=== PATIENT | female | born 1995 | race Caucasian/White ===

== ENCOUNTER 2016-11-15 07:52 | Emergency (ER) | payer OTHER ==
--- NOTE | 2016-11-15 10:43 | DIAGNOSTIC IMAGING REPORT ---
PROCEDURE: US SOFT TISSUE ANYWHERE INDICATION: Left labial pain and swelling. TECHNIQUE: Merida scale and color Doppler translabial sonographic images of the left labia were obtained. (Nohemy Islas, RN). COMPARISON: None. FINDINGS: There is a 3.3 x 1.7 cm proteinaceous fluid collection in the left labial subcutaneous tissues (1 cm deep to the skin surface). Findings are most compatible with an infected Bartholin gland. IMPRESSION: 1. There is a 3.3 x 1.7 cm of proteinaceous fluid collection the left labial region consistent with an infected Bartholin gland. 2. Findings discussed with Dr. Tigre Resendez.
--- NOTE | 2016-11-15 11:45 | ED NURSING NOTES ---
Clinical Report - Nurses [facility] [address] [place] [address] 11/15/2016 7:52 [id number] TRI[facility] Triage time 08:Nov 15 2016. Acuity: LEVEL 4. Chief Complaint: (Left side labia majora bump). 08:11 11/15/16. SEPSIS SCREEN: Sepsis Screen. Negative (no infection suspected/documented). CHANDNI COMA SCORE: [place] Coma Scale: 15- eyes open spontaneously (4); best verbal response- oriented x 4 (5); best motor response- obeys commands (6). --08:11 Ilda Penn R.N. 08:02 11/15/16. BP: 104/60 (regular adult cuff) taken on the left arm, while lying. HR: 97. RR: 18 (regular). O2 saturation: 96% on room air. Temp: 98.6 F (oral). Pain level now: 04/08. --08:11 Ilda Penn R.N. Weight: 52.6 kg stated. Height/Length: 65 inches Per Patient. BMI: 19.3. --08:05 Ilda Penn R.N. Medications None. --08:06 Ilda Penn R.N. Allergies No Known Drug Allergy. --08:06 Ilda Penn R.N. History Arrived by private vehicle. Historian: patient. Accompanied by family. Primary physician (ABDULLAHI SIDDIQUI). Onset. (several days). ( Patient has tried heat and ice). 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 PAST MEDICAL HX: Last normal menstrual period- 1 weeks ago. No contraception. SOCIAL HX: Current every day light tobacco smoker- less than 1/2 a pack per day. History of heavy drug use: marijuana, ecstasy. (1 month ago for ecstasy and smokes marijuana daily). No alcohol use. No infectious disease exposure. ABUSE ASSESSMENT: No report of abuse. --08:11 Ilda Penn R.N. PROBLEMS: Gastritis. Breast Mass. Lymphadenitis. Back Pain. Abdominal Pain. Pyelonephritis. LNMP - Last Normal Menstrual Period. --08:06 Ilda Penn R.N. The following entry was modified by Ilda Penn R.N., 08:08 <<STRICKEN ENTRY-- Vomiting. --15:38 Ilda Penn R.N. --END STRIKE>> The following entry was modified by Ilda Penn R.N., 08:08 <<STRICKEN ENTRY-- Sick Contact. --21:56 Ilda Penn R.N. --END STRIKE>> The following entry was modified by Ilda Penn R.N., 08:08 <<STRICKEN ENTRY-- No history. --15:50 Ilda Penn R.N. --END STRIKE>>. ADDITIONAL SURGERIES: Tonsillectomy. --08:06 Ilda Penn R.N. Interventions ID band on patient. To treatment room. --08:11 Ilda Penn R.N. PHYSICAL ASSESSMENT 08:12 11/15/16. Ambulatory to room. Patient gowned. GENERAL / NEURO / PSYCH: Oriented X 4. HEENT: Mucous membranes are pink. RESPIRATORY: Respirations not labored. CVS: Normal heart rate and rhythm. Capillary refill less than 2 seconds. GI / : Abdomen soft and nontender. Bowel sounds within normal limits. Tender genital lesions present on the left labia majora. No vaginal bleeding. SKIN: Skin is warm. --08:12 Ilda Penn R.N. NURSING PROGRESS NOTES 08:12 11/15/16. Patient gowned. Head of bed elevated. Reassurance given. Two patient identifiers checked. Call light placed in reach. Side rails up x 1. Bed placed in lowest position. Brakes of bed on. Patient ready for evaluation- chart flagged and ED physician notified. --08:12 Ilda Penn R.N. 10:24 11/15/2016 Percocet (Oxycodone-Acetaminophen) PO 5/325 mg Tablets 1 tab given. Allergies verified, confirmed 5 rights and sedative warning given to the patient. --10:24 Ilda Penn R.N. 10:29 11/15/2016 Ativan (LORazepam) IM 1 mg given. Given in the left deltoid. Allergies verified, confirmed 5 rights and sedative warning given to the patient. --10:29 Idla Penn R.N. 11:46 11/15/2016 Keflex (Cephalexin) PO Capsules 500 mg given. Allergies verified and confirmed 5 rights. --11:46 Ilda Penn R.N. 11:46 11/15/2016 Bactrim DS (Sulfamethoxazole-TMP DS) PO Tablets 1 tab given. Allergies verified and confirmed 5 rights. --11:47 Ilda Penn R.N. DISPOSITION / DISCHARGE 12:19 11/15/16. Condition at departure: improved. No learning barriers present. Discharge instructions provided and reviewed with the patient. Reviewed medication(s) side effects, precautions and dosing information. Prescription(s) given to the patient. Reviewed wound care instructions. Patient verbalized understanding. Written instructions provided in Austrian. The patient was discharged by the physician. She was discharged home and accompanied by parent. She left the Emergency Department ambulatory and via private vehicle. Parent driving. ( Patient has no further questions). --12:20 Ilda Penn R.N. 12:14 11/15/16. BP: 118/69 (regular adult cuff) taken on the left arm, while sitting. HR: 88. RR: 18. O2 saturation: 99% on room air. Temp: 98.5 F (oral). Pain level now: 5/10. --12:20 Ilda Penn R.N. Departure time: 12:Nov 15 2016. --12:20 Ilda Penn R.N. Locked/Released at 11/15/2016 12:34 by Ilda Penn R.N.
--- NOTE | 2016-11-15 11:45 | ED NURSING NOTES ---
Clinical Report - Nurses [facility] [address] [place] [address] 11/15/2016 7:52 [id number] Triage time 08:Nov 15 2016. Acuity: LEVEL 4. Chief Complaint: (Left side labia majora bump). 08:11 11/15/16. SEPSIS SCREEN: Sepsis Screen. Negative (no infection suspected/documented). CHANDNI COMA SCORE: [place] Coma Scale: 15- eyes open spontaneously (4); best verbal response- oriented x 4 (5); best motor response- obeys commands (6). --08:11 Ilda Penn R.N. 08:02 11/15/16. BP: 104/60 (regular adult cuff) taken on the left arm, while lying. HR: 97. RR: 18 (regular). O2 saturation: 96% on room air. Temp: 98.6 F (oral). Pain level now: 04/08. --08:11 Ilda Penn R.N. Weight: 52.6 kg stated. Height/Length: 65 inches Per Patient. BMI: 19.3. --08:05 Ilda Penn R.N. Medications None. --08:06 Ilda Penn R.N. Allergies No Known Drug Allergy. --08:06 lIda Penn R.N. History Arrived by private vehicle. Historian: patient. Accompanied by family. Primary physician (ABDULLAHI SIDDIQUI). Onset. (several days). ( Patient has tried heat and ice). 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 PAST MEDICAL HX: Last normal menstrual period- 1 weeks ago. No contraception. SOCIAL HX: Current every day light tobacco smoker- less than 1/2 a pack per day. History of heavy drug use: marijuana, ecstasy. (1 month ago for ecstasy and smokes marijuana daily). No alcohol use. No infectious disease exposure. ABUSE ASSESSMENT: No report of abuse. --08:11 Ilda Penn R.N. PROBLEMS: Gastritis. Breast Mass. Lymphadenitis. Back Pain. Abdominal Pain. Pyelonephritis. LNMP - Last Normal Menstrual Period. --08:06 Ilda Penn R.N. The following entry was modified by Ilda Penn R.N., 08:08 <<STRICKEN ENTRY-- Vomiting. --15:38 Ilda Penn R.N. --END STRIKE>> The following entry was modified by Ilda Penn R.N., 08:08 <<STRICKEN ENTRY-- Sick Contact. --21:56 Ilda Penn R.N. --END STRIKE>> The following entry was modified by Ilda Penn R.N., 08:08 <<STRICKEN ENTRY-- No history. --15:50 Ilda Penn R.N. --END STRIKE>>. ADDITIONAL SURGERIES: Tonsillectomy. --08:06 Ilda Penn R.N. Interventions ID band on patient. To treatment room. --08:11 Ilda Penn R.N. PHYSICAL ASSESSMENT 08:12 11/15/16. Ambulatory to room. Patient gowned. GENERAL / NEURO / PSYCH: Oriented X 4. HEENT: Mucous membranes are pink. RESPIRATORY: Respirations not labored. CVS: Normal heart rate and rhythm. Capillary refill less than 2 seconds. GI / : Abdomen soft and nontender. Bowel sounds within normal limits. Tender genital lesions present on the left labia majora. No vaginal bleeding. SKIN: Skin is warm. --08:12 Ilda Penn R.N. NURSING PROGRESS NOTES 08:12 11/15/16. Patient gowned. Head of bed elevated. Reassurance given. Two patient identifiers checked. Call light placed in reach. Side rails up x 1. Bed placed in lowest position. Brakes of bed on. Patient ready for evaluation- chart flagged and ED physician notified. --08:12 Ilda Penn R.N. 10:24 11/15/2016 Percocet (Oxycodone-Acetaminophen) PO 5/325 mg Tablets 1 tab given. Allergies verified, confirmed 5 rights and sedative warning given to the patient. --10:24 Ilda Penn R.N. 10:29 11/15/2016 Ativan (LORazepam) IM 1 mg given. Given in the left deltoid. Allergies verified, confirmed 5 rights and sedative warning given to the patient. --10:29 Ilda Penn R.N. 11:46 11/15/2016 Keflex (Cephalexin) PO Capsules 500 mg given. Allergies verified and confirmed 5 rights. --11:46 Ilda Penn R.N. 11:46 11/15/2016 Bactrim DS (Sulfamethoxazole-TMP DS) PO Tablets 1 tab given. Allergies verified and confirmed 5 rights. --11:47 Ilda Penn R.N. DISPOSITION / DISCHARGE 12:19 11/15/16. Condition at departure: improved. No learning barriers present. Discharge instructions provided and reviewed with the patient. Reviewed medication(s) side effects, precautions and dosing information. Prescription(s) given to the patient. Reviewed wound care instructions. Patient verbalized understanding. Written instructions provided in Tongan. The patient was discharged by the physician. She was discharged home and accompanied by parent. She left the Emergency Department ambulatory and via private vehicle. Parent driving. ( Patient has no further questions). --12:20 Ilda Penn R.N. 12:14 11/15/16. BP: 118/69 (regular adult cuff) taken on the left arm, while sitting. HR: 88. RR: 18. O2 saturation: 99% on room air. Temp: 98.5 F (oral). Pain level now: 5/10. --12:20 Ilda Penn R.N. Departure time: 12:Nov 15 2016. --12:20 Ilda Penn R.N. Locked/Released at 11/15/2016 12:34 by Ilda Penn R.N.
--- NOTE | 2016-11-15 11:45 | ED ORDER SUMMARY ---
..... Patient: PROSPER FORREST OrderSheet Located [facility] VisitID: [id number] [place] [address] 21y, F Registration Date/Time: 11/15/2016 ORDER SHEET Weight: 52.6 kg (stated) Allergies: No Known Drug Allergy GENERAL ORDERS: US Soft Tissue Anywhere (bump) Urgent (08:26 11/15/2016 Berhane [place]) (Ack 8:29 Edgar) (9:05 Edgar) UA-Culture if indicated Urgent (08:26 11/15/2016 Berhane [place]) (8:27 Rell R.N.) I&D Tray (09:51 11/15/2016 Fuad Hurtado) (10:04 Rell R.N.) MEDICATION ORDERS: Lidocaine-Epinephrine Injection 1% (place at bedside, with syringes & needles) (09:50 11/15/2016 Fuad Hurtado) (Ack 10:04 Rell R.N.) Ativan IM 1 mg (HIGH ALERT MEDICATION, NOW) (10:16 11/15/2016 Fuad Hurtado) (10:29 Rell R.N.) Percocet PO 5/325 mg (HIGH ALERT MEDICATION, NOW) (10:17 11/15/2016 Fuad Hurtado) (10:24 Rell R.N.) Keflex PO 500 mg (NOW) (11:42 11/15/2016 Fuad Hurtado) (11:46 Rell R.N.) Bactrim DS PO (Tablet 800-160 mg) 1 tab (NOW) (11:42 11/15/2016 Fuad Hurtado) (11:47 Rell R.N.) IV FLUIDS: ORDER SHEET NOTES: [Electronically signed by Ilda Penn R.N. (12:34 11/15/2016)] [Electronically signed by Feng Isaacs Dr. (08:48 11/21/2016)] [Electronically locked/signed by Ilda Penn R.N. (12:34 11/15/2016)]
--- NOTE | 2016-11-15 11:45 | ED ORDER SUMMARY ---
..... Patient: PROSPER FORREST OrderSheet [facility] VisitID: [id number] [place] [address] 21y, F Registration Date/Time: 11/15/2016 ORDER SHEET Weight: 52.6 kg (stated) Allergies: No Known Drug Allergy GENERAL ORDERS: US Soft Tissue Anywhere (bump) Urgent (08:26 11/15/2016 Berhane [place]) (Ack 8:29 Edgar) (9:05 Edgar) UA-Culture if indicated Urgent (08:26 11/15/2016 [place]ane [place]) (8:27 Rell R.N.) I&D Tray (09:51 11/15/2016 Fuad Hurtado) (10:04 Rell R.N.) MEDICATION ORDERS: Lidocaine-Epinephrine Injection 1% (place at bedside, with syringes & needles) (09:50 11/15/2016 Fuad Hurtado) (Ack 10:04 Rell R.N.) Ativan IM 1 mg (HIGH ALERT MEDICATION, NOW) (10:16 11/15/2016 Fuad Hurtado) (10:29 Rell R.N.) Percocet PO 5/325 mg (HIGH ALERT MEDICATION, NOW) (10:17 11/15/2016 Fuad Hurtado) (10:24 Rell R.N.) Keflex PO 500 mg (NOW) (11:42 11/15/2016 Fuad Hurtado) (11:46 Rell R.N.) Bactrim DS PO (Tablet 800-160 mg) 1 tab (NOW) (11:42 11/15/2016 Fuad Hurtado) (11:47 Rell R.N.) IV FLUIDS: ORDER SHEET NOTES: [Electronically signed by Ilda Penn R.N. (12:34 11/15/2016)] [Electronically signed by Feng Isaacs Dr. (08:48 11/21/2016)] [Electronically locked/signed by Ilda Penn R.N. (12:34 11/15/2016)]
--- NOTE | 2016-11-15 11:45 | ED CLINICAL REPORT ---
Clinical Report - Physicians/Mid Levels [facility] [address] [place] [address] 11/15/2016 7:52 Patient: PROSPER FORREST Time Seen: 08:13 Nov 15 2016. Arrived- By private vehicle. Historian- patient. HISTORY OF PRESENT ILLNESS Chief Complaint: VAGINAL PAIN. This started past several days and still present and worsening. It was abrupt in onset and has been constant but is not gone now. Modifying factors- worsened by movement. Relieved by rest. The patient has had vaginal pain. No abdominal pain, pelvic pain, irregular periods, abnormal bleeding or vaginal discharge. No genital lesions, pain with urination or urinary frequency. (swelling to the left labia). Similar symptoms previously: None. Recent medical care: Not recently seen/assessed. REVIEW OF SYSTEMS No nausea, fever or skin rash. All systems otherwise negative, except as recorded above. PAST HISTORY See nurses notes. SOCIAL HISTORY Never smoker. Smoker- current status unknown. History of drug use: marijuana, ecstasy. No alcohol use. No recent travel. Is a local resident. ADDITIONAL NOTES The nursing notes have been reviewed. PHYSICAL EXAM Vital Signs: 11/15/2016 08:02 BP: 104/60. HR: 97. RR: 18. O2 saturation: 96%. Temp: 98.6 F. Pain level now: 8/10. Blood pressure normal. Oxygen saturation normal. Appearance: Alert. Oriented X3. No acute distress. CVS: Heart sounds normal. Respiratory: No respiratory distress. Breath sounds normal. Chest nontender. Abdomen: Soft and nontender. Bowel sounds normal. : (abscess to the left labia consistent with bartholin's. Deep and moderate sized. No area of fluctuance. no overlying skin changes. no crepitus. no gangrene. exam peformed with GLENN Gonsales casino assistant manager at all times.). Skin: Skin warm and dry. Normal skin color. No rash. Normal skin turgor. Extremities: Extremities nontender. No lower extremity edema. LABS, X-RAYS, AND EKG Note - Special Studies: Fluid collection to the left labia consistent with Bartholin's abscess. study performed by product support technician. Reviewed and interpreted by radiology. Findings discussed over the phone. Films were also reviewed by me. Agree with findings. PROGRESS AND PROCEDURES Incision & Drainage of Abscess: The risks of the procedure, benefits and alternatives were explained. Anesthesia provided using 1% lidocaine with epi. Skin cleansed with Betadine. Ultrasound utilized to confirm presence and determine location of abscess. A moderate amount of pus was drained. Cavity was irrigated with saline. Word catheter was placed. A dressing was applied. Estimated blood loss: 3 mL. ( Informed verbal consent obtained. patient tolerated procedure well. No competitions.). Course of Care: The patient is a pleasant 21-year-old female presenting for evaluation of left-sided labial pain. On examination, patient has signs and symptoms that are consistent with Bartholin's abscess. Ultrasound performed by cardiopulmonary technician prior to the arrival on my shift concerns patient to have abscess there. Bedside incision and drainage will be performed after informed verbal consent obtained. Patient is agreeable to treatment and plan. Discussed with patient 3 options with management of the abscess. Recommendeddrainage with antibiotics however also offered antibiotics alone or no treatment. After discussing the risks and benefits of each of these, patient agreed to abscess incision and drainage with antibiotics. Had long discussion patient in regards to Word catheter and the length of time needed for the Word catheter to be in place and also the high likelihood of recurrence of these abscesses in the future. abscess was successfully drained at bedside in the emergency department. Abscess was somewhat deep and ultrasound was required to identify and properly locates the abscess. Patient tolerated the procedure well. No competitions. Word catheter was placed. Antibiotic as provided here in the emergency department. I discussion with patient in regards to her workup here in the emergency department including diagnosis, home care, follow-up, and return precautions. All questions have been answered. The patient expressed understanding of these instructions and was agreeable to them. Patient is nontoxic and continues to be in no acute distress. Patient is a good outpatient candidate. Symptoms significantly improved after procedure and medications provided. CLINICAL IMPRESSION 11/15/2016 08:02 BP: 104/60. HR: 97. RR: 18. O2 saturation: 96%. Temp: 98.6 F. Pain level now: 8/10. Blood pressure normal. Oxygen saturation normal. Bartholin's abscess with incision and drainage (acute left). INSTRUCTIONS (Drain needs to stay in for 4 weeks. Follow up with your doctor in a few days to recheck the wound.). Warnings: GENERAL WARNINGS: Return or contact your physician immediately if your condition worsens or changes unexpectedly, if not improving as expected, or if other problems arise. Specifically return if pain, vomiting, bleeding, breathing difficulty or fever. Your Current Medications: CONTINUE TAKING THE FOLLOWING MEDICATIONS: None*. Prescription Medications: Keflex 500 mg: take 1 capsule orally every 8 hours for 10 days. No refill. Substitution is permissible. (disp 30 caps) Bactrim DS 800 mg / 160 mg: take 1 tablet orally every 12 hours for 10 days. No refill. Substitution is permissible. (disp 20 tabs) Percocet 5 mg/325 mg: take 1 tablet orally every 6 hours as needed for pain. Dispense twenty (20). No refill. Substitution is permissible. Follow-up: Return to the emergency department as needed. Follow up with your doctor in three days. Reason for referral: recheck today's concerns. Summary of care provided to patient via paper. Screening today revealed the patient's blood pressure to be in the normal range. The patient should follow up with a primary care provider for blood pressure management. Understanding of the discharge instructions verbalized by patient. Follow-up with: Jacoby Mcdonnell MD, Obstetrics/Gynecology, , [facility], [address] [place] [address] Follow up in three days. Reason for referral: recheck today's concerns if you are unable to see your doctor. Summary of care provided to patient via paper. (Electronically signed by Feng Isaacs Dr. 11/21/2016 8:48)
--- NOTE | 2016-11-15 11:45 | ED CLINICAL REPORT ---
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 Arrived- By private vehicle. Historian- patient. HISTORY OF PRESENT ILLNESS Chief Complaint: VAGINAL PAIN. This started past several days and still present and worsening. It was abrupt in onset and has been constant but is not gone now. Modifying factors- worsened by movement. Relieved by rest. The patient has had vaginal pain. No abdominal pain, pelvic pain, irregular periods, abnormal bleeding or vaginal discharge. No genital lesions, pain with urination or urinary frequency. (swelling to the left labia). Similar symptoms previously: None. Recent medical care: Not recently seen/assessed. REVIEW OF SYSTEMS No nausea, fever or skin rash. All systems otherwise negative, except as recorded above. PAST HISTORY See nurses notes. SOCIAL HISTORY Never smoker. Smoker- current status unknown. History of drug use: marijuana, ecstasy. No alcohol use. No recent travel. Is a local resident. ADDITIONAL NOTES The nursing notes have been reviewed. PHYSICAL EXAM Vital Signs: 11/15/2016 08:02 BP: 104/60. HR: 97. RR: 18. O2 saturation: 96%. Temp: 98.6 F. Pain level now: 8/10. Blood pressure normal. Oxygen saturation normal. Appearance: Alert. Oriented X3. No acute distress. CVS: Heart sounds normal. Respiratory: No respiratory distress. Breath sounds normal. Chest nontender. Abdomen: Soft and nontender. Bowel sounds normal. : (abscess to the left labia consistent with bartholin's. Deep and moderate sized. No area of fluctuance. no overlying skin changes. no crepitus. no gangrene. exam peformed with GLENN Gonsales facility administrator at all times.). Skin: Skin warm and dry. Normal skin color. No rash. Normal skin turgor. Extremities: Extremities nontender. No lower extremity edema. LABS, X-RAYS, AND EKG Note - Special Studies: Fluid collection to the left labia consistent with Bartholin's abscess. study performed by auto transmission technician. Reviewed and interpreted by radiology. Findings discussed over the phone. Films were also reviewed by me. Agree with findings. PROGRESS AND PROCEDURES Incision & Drainage of Abscess: The risks of the procedure, benefits and alternatives were explained. Anesthesia provided using 1% lidocaine with epi. Skin cleansed with Betadine. Ultrasound utilized to confirm presence and determine location of abscess. A moderate amount of pus was drained. Cavity was irrigated with saline. Word catheter was placed. A dressing was applied. Estimated blood loss: 3 mL. ( Informed verbal consent obtained. patient tolerated procedure well. No competitions.). Course of Care: The patient is a pleasant 21-year-old female presenting for evaluation of left-sided labial pain. On examination, patient has signs and symptoms that are consistent with Bartholin's abscess. Ultrasound performed by materials engineering technician prior to the arrival on my shift concerns patient to have abscess there. Bedside incision and drainage will be performed after informed verbal consent obtained. Patient is agreeable to treatment and plan. Discussed with patient 3 options with management of the abscess. Recommendeddrainage with antibiotics however also offered antibiotics alone or no treatment. After discussing the risks and benefits of each of these, patient agreed to abscess incision and drainage with antibiotics. Had long discussion patient in regards to Word catheter and the length of time needed for the Word catheter to be in place and also the high likelihood of recurrence of these abscesses in the future. abscess was successfully drained at bedside in the emergency department. Abscess was somewhat deep and ultrasound was required to identify and properly locates the abscess. Patient tolerated the procedure well. No competitions. Word catheter was placed. Antibiotic as provided here in the emergency department. I discussion with patient in regards to her workup here in the emergency department including diagnosis, home care, follow-up, and return precautions. All questions have been answered. The patient expressed understanding of these instructions and was agreeable to them. Patient is nontoxic and continues to be in no acute distress. Patient is a good outpatient candidate. Symptoms significantly improved after procedure and medications provided. CLINICAL IMPRESSION 11/15/2016 08:02 BP: 104/60. HR: 97. RR: 18. O2 saturation: 96%. Temp: 98.6 F. Pain level now: 8/10. Blood pressure normal. Oxygen saturation normal. Bartholin's abscess with incision and drainage (acute left). INSTRUCTIONS (Drain needs to stay in for 4 weeks. Follow up with your doctor in a few days to recheck the wound.). Warnings: GENERAL WARNINGS: Return or contact your physician immediately if your condition worsens or changes unexpectedly, if not improving as expected, or if other problems arise. Specifically return if pain, vomiting, bleeding, breathing difficulty or fever. Your Current Medications: CONTINUE TAKING THE FOLLOWING MEDICATIONS: None*. Prescription Medications: Keflex 500 mg: take 1 capsule orally every 8 hours for 10 days. No refill. Substitution is permissible. (disp 30 caps) Bactrim DS 800 mg / 160 mg: take 1 tablet orally every 12 hours for 10 days. No refill. Substitution is permissible. (disp 20 tabs) Percocet 5 mg/325 mg: take 1 tablet orally every 6 hours as needed for pain. Dispense twenty (20). No refill. Substitution is permissible. Follow-up: Return to the emergency department as needed. Follow up with your doctor in three days. Reason for referral: recheck today's concerns. Summary of care provided to patient via paper. Screening today revealed the patient's blood pressure to be in the normal range. The patient should follow up with a primary care provider for blood pressure management. Understanding of the discharge instructions verbalized by patient. Follow-up with: Jacoby Mcdonnell MD, Obstetrics/Gynecology, , [facility], [address] [place] [address] Follow up in three days. Reason for referral: recheck today's concerns if you are unable to see your doctor. Summary of care provided to patient via paper. (Electronically signed by Feng Isaacs Dr. 11/21/2016 8:48)
--- NOTE | 2016-11-21 08:48 | ED DISCHARGE INSTRUCTIONS ---
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 HR: 97. RR: 18. O2 saturation: 96%. Temp: 98.6 F. Pain level now: 8/10. Blood pressure normal. Oxygen saturation normal. Bartholin's abscess with incision and drainage (acute left). INSTRUCTIONS (Drain needs to stay in for 4 weeks. Follow up with your doctor in a few days to recheck the wound.). Warnings: GENERAL WARNINGS: Return or contact your physician immediately if your condition worsens or changes unexpectedly, if not improving as expected, or if other problems arise. Specifically return if pain, vomiting, bleeding, breathing difficulty or fever. Your Current Medications: CONTINUE TAKING THE FOLLOWING MEDICATIONS: None*. Prescription Medications: Keflex 500 mg: take 1 capsule orally every 8 hours for 10 days. No refill. Substitution is permissible. (disp 30 caps) Bactrim DS 800 mg / 160 mg: take 1 tablet orally every 12 hours for 10 days. No refill. Substitution is permissible. (disp 20 tabs) Percocet 5 mg/325 mg: take 1 tablet orally every 6 hours as needed for pain. Dispense twenty (20). No refill. Substitution is permissible. Follow-up: Return to the emergency department as needed. Follow up with your doctor in three days. Reason for referral: recheck today's concerns. Summary of care provided to patient via paper. Screening today revealed the patient's blood pressure to be in the normal range. The patient should follow up with a primary care provider for blood pressure management. Understanding of the discharge instructions verbalized by patient. Follow-up with: Jacoby Mcdonnell MD, Obstetrics/Gynecology, , [facility], [address] [place] [address] Follow up in three days. Reason for referral: recheck today's concerns if you are unable to see your doctor. Summary of care provided to patient via paper. ADDITIONAL INFORMATION Bartholin's Cyst [I&D] The Bartholin's glands are very small glands found inside the labia (vaginal lips). The glands produce fluid to help keep the vagina moist. When the opening of a Bartholins gland becomes blocked, the gland will swell and form a cyst. A cyst feels like a firm lump within the labia, from to 2 in size. It is usually not painful, unless it becomes infected. There are two common methods for draining the fluid and preventing return of the cyst: -- A small rubber tube (Word catheter) may have been inserted into the cyst. This will probably fall out on its own, or can be removed by your doctor in 2-3 weeks. -- A stitch may be used to hold the incision open and prevent it from healing closed too soon. Most infections of Bartholins cysts are due to bacteria that are normally present in the vagina. But, sometimes a sexually transmitted disease (STD) such as Gonorrhea can cause the infection. A culture test of the fluid can determine this. Home Care: 1) Sit in a tub filled with about 6 inches of very hot water. Allow the water to run in order to keep it hot for a total of 10-15 minutes. Repeat this three times a day until pain is relieved. 2) You may use acetaminophen (Tylenol) or ibuprofen (Motrin, Advil) to control pain, unless another medicine was prescribed. [ NOTE : If you have chronic liver or kidney disease or ever had a stomach ulcer or GI bleeding, talk with your doctor before using these medicines.] 3) Avoid sexual intercourse until all of the swelling and pain is gone, any tubes or stitches have been removed, and you have finished any antibiotics that were given. 4) If the cause of your infection is found to be due to an STD, it will be necessary for your sexual partner to be treated. He should contact his own doctor or clinic, or go to the local Public Health Department. Follow Up with your doctor or as advised by our staff. If a culture test was taken, you may call in two days for the result. If a rubber catheter was inserted and it falls out before your appointment to have it removed, call us or your doctor for advice. Get Prompt Medical Attention if any of the following occur: -- Increasing redness, pain or swelling of the labia -- Fever over 100.5' F (38.0' C) after two days of treatment -- Increasing pain in the lower abdomen -- New rash or joint pain Cephalexin Monohydrate Oral tablet What is this medicine? CEPHALEXIN (sef a NORBERT in) is a cephalosporin antibiotic. It is used to treat certain kinds of bacterial infections It will not work for colds, flu, or other viral infections. How should I use this medicine? Take this medicine by mouth with a full glass of water. Follow the directions on the prescription label. This medicine can be taken with or without food. Take your medicine at regular intervals. Do not take your medicine more often than directed. Take all of your medicine as directed even if you think you are better. Do not skip doses or stop your medicine early. Talk to your director of blood regarding the use of this medicine in children. While this drug may be prescribed for selected conditions, precautions do apply. What side effects may I notice from receiving this medicine? Side effects that you should report to your doctor or health memory care program resident as soon as possible: allergic reactions like skin rash, itching or hives, swelling of the face, lips, or tongue breathing problems pain or trouble passing urine redness, blistering, peeling or loosening of the skin, including inside the mouth severe or watery diarrhea unusually weak or tired yellowing of the eyes, skin Side effects that usually do not require medical attention (report to your doctor or health memory care program resident if they continue or are bothersome): gas or heartburn genital or anal irritation headache joint or muscle pain nausea, vomiting What may interact with this medicine? probenecid some other antibiotics What if I miss a dose? If you miss a dose, take it as soon as you can. If it is almost time for your next dose, take only that dose. Do not take double or extra doses. There should be at least 4 to 6 hours between doses. Where should I keep my medicine? Keep out of the reach of children. Store at room temperature between 59 and 86 degrees F (15 and 30 degrees C). Throw away any unused medicine after the expiration date. What should I tell my health care provider before I take this medicine? They need to know if you have any of these conditions: kidney disease stomach or intestine problems, especially colitis an unusual or allergic reaction to cephalexin, other cephalosporins, penicillins, other antibiotics, medicines, foods, dyes or preservatives or trying to get breast-feeding What should I watch for while using this medicine? Tell your doctor or health memory care program resident if your symptoms do not begin to improve in a few days. Do not treat diarrhea with over the counter products. Contact your doctor if you have diarrhea that lasts more than 2 days or if it is severe and watery. If you have diabetes, you may get a false-positive result for sugar in your urine. Check with your doctor or health memory care program resident. Sulfamethoxazole, Trimethoprim Oral tablet What is this medicine? SULFAMETHOXAZOLE; TRIMETHOPRIM or SMX-TMP (suhl fuh meth OK jovan zohl; trye METH oh prim) is a combination of a sulfonamide antibiotic and a second antibiotic, trimethoprim. It is used to treat or prevent certain kinds of bacterial infections. It will not work for colds, flu, or other viral infections. How should I use this medicine? Take this medicine by mouth with a full glass of water. Follow the directions on the prescription label. Take your medicine at regular intervals. Do not take it more often than directed. Do not skip doses or stop your medicine early. Talk to your director of blood regarding the use of this medicine in children. Special care may be needed. This medicine has been used in children as young as 2 months of age. What side effects may I notice from receiving this medicine? Side effects that you should report to your doctor or health memory care program resident as soon as possible: allergic reactions like skin rash or hives, swelling of the face, lips, or tongue breathing problems fever or chills, sore throat irregular heartbeat, chest pain joint or muscle pain pain or difficulty passing urine red pinpoint spots on skin redness, blistering, peeling or loosening of the skin, including inside the mouth unusual bleeding or bruising unusually weak or tired yellowing of the eyes or skin Side effects that usually do not require medical attention (report to your doctor or health memory care program resident if they continue or are bothersome): diarrhea dizziness headache loss of appetite nausea, vomiting nervousness What may interact with this medicine? Do not take this medicine with any of the following medications: aminobenzoate potassium dofetilide metronidazole This medicine may also interact with the following medications: TALIA inhibitors like benazepril, enalapril, lisinopril, and ramipril cyclosporine digoxin diuretics indomethacin medicines for diabetes methenamine methotrexate phenytoin potassium supplements pyrimethamine sulfinpyrazone tricyclic antidepressants warfarin What if I miss a dose? If you miss a dose, take it as soon as you can. If it is almost time for your next dose, take only that dose. Do not take double or extra doses. Where should I keep my medicine? Keep out of the reach of children. Store at room temperature between 20 to 25 degrees C (68 to 77 degrees F). Protect from light. Throw away any unused medicine after the expiration date. What should I tell my health care provider before I take this medicine? They need to know if you have any of these conditions: anemia asthma being treated with anticonvulsants if you frequently drink alcohol containing drinks kidney disease liver disease low level of folic acid or [id number] dehydrogenase poor nutrition or malabsorption porphyria severe allergies thyroid disorder an unusual or allergic reaction to sulfamethoxazole, trimethoprim, sulfa drugs, other medicines, foods, dyes, or preservatives or trying to get breast-feeding What should I watch for while using this medicine? Tell your doctor or health memory care program resident if your symptoms do not improve. Drink several glasses of water a day to reduce the risk of kidney problems. Do not treat diarrhea with over the counter products. Contact your doctor if you have diarrhea that lasts more than 2 days or if it is severe and watery. This medicine can make you more sensitive to the sun. Keep out of the sun. If you cannot avoid being in the sun, wear protective clothing and use a sunscreen. Do not use sun lamps or tanning beds/booths. Oxycodone Hydrochloride, Acetaminophen Oral tablet What is this medicine? ACETAMINOPHEN; OXYCODONE (a set a ARNULFO law fen; ox i KOE done) is a pain reliever. It is used to treat mild to moderate pain. How should I use this medicine? Take this medicine by mouth with a full glass of water. Follow the directions on the prescription label. Take your medicine at regular intervals. Do not take your medicine more often than directed. Talk to your director of blood regarding the use of this medicine in children. Special care may be needed. Patients over 65 years old may have a stronger reaction and need a smaller dose. What side effects may I notice from receiving this medicine? Side effects that you should report to your doctor or health memory care program resident as soon as possible: allergic reactions like skin rash, itching or hives, swelling of the face, lips, or tongue breathing difficulties, wheezing confusion light headedness or fainting spells severe stomach pain yellowing of the skin or the whites of the eyes Side effects that usually do not require medical attention (report to your doctor or health memory care program resident if they continue or are bothersome): dizziness drowsiness nausea vomiting What may interact with this medicine? alcohol antihistamines barbiturates like amobarbital, butalbital, butabarbital, methohexital, pentobarbital, phenobarbital, thiopental, and secobarbital benztropine drugs for bladder problems like solifenacin, trospium, oxybutynin, tolterodine, hyoscyamine, and methscopolamine drugs for breathing problems like ipratropium and tiotropium drugs for certain stomach or intestine problems like propantheline, homatropine methylbromide, glycopyrrolate, atropine, belladonna, and dicyclomine general anesthetics like etomidate, ketamine, nitrous oxide, propofol, desflurane, enflurane, halothane, isoflurane, and sevoflurane medicines for depression, anxiety, or psychotic disturbances medicines for sleep muscle relaxants naltrexone narcotic medicines (opiates) for pain phenothiazines like perphenazine, thioridazine, chlorpromazine, mesoridazine, fluphenazine, prochlorperazine, promazine, and trifluoperazine scopolamine tramadol trihexyphenidyl What if I miss a dose? If you miss a dose, take it as soon as you can. If it is almost time for your next dose, take only that dose. Do not take double or extra doses. Where should I keep my medicine? Keep out of the reach of children. This medicine can be abused. Keep your medicine in a safe place to protect it from theft. Do not share this medicine with anyone. Selling or giving away this medicine is dangerous and against the law. Store at room temperature between 20 and 25 degrees C (68 and 77 degrees F). Keep container tightly closed. Protect from light. This medicine may cause accidental overdose and if it is taken by other adults, children, or pets. Flush any unused medicine down the toilet to reduce the chance of harm. Do not use the medicine after the expiration date. What should I tell my health care provider before I take this medicine? They need to know if you have any of these conditions: brain tumor Crohn's disease, inflammatory bowel disease, or ulcerative colitis drink more than 3 alcohol containing drinks per day drug abuse or addiction head injury heart or circulation problems kidney disease or problems going to the bathroom liver disease lung disease, asthma, or breathing problems an unusual or allergic reaction to acetaminophen, oxycodone, other opioid analgesics, other medicines, foods, dyes, or preservatives or trying to get breast-feeding What should I watch for while using this medicine? Tell your doctor or health memory care program resident if your pain does not go away, if it gets worse, or if you have new or a different type of pain. You may develop tolerance to the medicine. Tolerance means that you will need a higher dose of the medication for pain relief. Tolerance is normal and is expected if you take this medicine for a long time. Do not suddenly stop taking your medicine because you may develop a severe reaction. Your body becomes used to the medicine. This does NOT mean you are addicted. Addiction is a behavior related to getting and using a drug for a non-medical reason. If you have pain, you have a medical reason to take pain medicine. Your doctor will tell you how much medicine to take. If your doctor wants you to stop the medicine, the dose will be slowly lowered over time to avoid any side effects. You may get drowsy or dizzy. Do not drive, use machinery, or do anything that needs mental alertness until you know how this medicine affects you. Do not stand or sit up quickly, especially if you are an older patient. This reduces the risk of dizzy or fainting spells. Alcohol may interfere with the effect of this medicine. Avoid alcoholic drinks. There are different types of narcotic medicines (opiates) for pain. If you take more than one type at the same time, you may have more side effects. Give your health care provider a list of all medicines you use. Your doctor will tell you how much medicine to take. Do not take more medicine than directed. Call emergency for help if you have problems breathing. The medicine will cause constipation. Try to have a bowel movement at least every 2 to 3 days. If you do not have a bowel movement for 3 days, call your doctor or health memory care program resident. Do not take Tylenol (acetaminophen) or medicines that have acetaminophen with this medicine. Too much acetaminophen can be very dangerous. Many nonprescription medicines contain acetaminophen. Always read the labels carefully to avoid taking more acetaminophen. You have been given the following additional information: Bartholin's Cyst (I And D) Cephalexin Monohydrate Oral tablet Sulfamethoxazole, Trimethoprim Oral tablet Oxycodone Hydrochloride, Acetaminophen Oral tablet (Electronically signed by Feng Isaacs Dr. 11/21/2016 8:48)
--- NOTE | 2016-11-21 08:48 | ED MAR SUMMARY ---
..... 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 Medication Administered: PERCOCET [PO] (OXYCODONE-ACETAMINOPHEN), Dose: 1 tab 5/325 mg Tablets PO. Medication Ordered: Percocet PO 5/325 mg (HIGH ALERT MEDICATION, NOW). Given 10:11/15/2016 Ilda Penn R.N. Medication Administered: ATIVAN [IM] (LORAZEPAM), Dose: 1 mg IM. Medication Ordered: Ativan IM 1 mg (HIGH ALERT MEDICATION, NOW). Given 11:11/15/2016 Ilda Penn R.N. Medication Administered: KEFLEX [PO] (CEPHALEXIN), Dose: 500 mg Capsules PO. Medication Ordered: Keflex PO 500 mg (NOW). Given :11/15/2016 Ilda Penn R.N. Medication Administered: BACTRIM DS [PO] (SULFAMETHOXAZOLE-TMP DS), Dose: 1 tab Tablets PO. Medication Ordered: Bactrim DS PO (Tablet 800-160 mg) 1 tab (NOW).
--- NOTE | 2016-11-21 08:48 | ED MED RECONCILIATION SUMMARY ---
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 BMI: 19.3 ALLERGIES: No Known Drug Allergy The patient's Home Medications are listed below: NONE. The source(s) of the original Home Medication information: Not obtained. The following Medications were given to the patient in the Emergency Department: Percocet [PO] PO 1 tab, administered: 11/15/2016 10:24:00 AM Ativan [IM] IM 1 mg, administered: 11/15/2016 10:29:00 AM Keflex [PO] PO 500 mg, administered: 11/15/2016 11:46:00 AM Bactrim DS [PO] PO 1 tab, administered: 11/15/2016 11:46:00 AM The following Medications were prescribed to the patient: Keflex 500 mg: take 1 capsule orally every 8 hours for 10 days. No refill. Substitution is permissible.(disp 30 caps) -- Feng Isaacs Dr. Bactrim DS 800 mg / 160 mg: take 1 tablet orally every 12 hours for 10 days. No refill. Substitution is permissible.(disp 20 tabs) -- Feng Isaacs Dr. Percocet 5 mg/325 mg: take 1 tablet orally every 6 hours as needed for pain. Dispense twenty (20). No refill. Substitution is permissible. -- Feng Isaacs Dr.
--- NOTE | 2016-11-21 08:48 | ED MAR SUMMARY ---
..... 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 Medication Administered: PERCOCET [PO] (OXYCODONE-ACETAMINOPHEN), Dose: 1 tab 5/325 mg Tablets PO. Medication Ordered: Percocet PO 5/325 mg (HIGH ALERT MEDICATION, NOW). Given 10:11/15/2016 Ilda Penn R.N. Medication Administered: ATIVAN [IM] (LORAZEPAM), Dose: 1 mg IM. Medication Ordered: Ativan IM 1 mg (HIGH ALERT MEDICATION, NOW). Given 11:11/15/2016 Ilda Penn R.N. Medication Administered: KEFLEX [PO] (CEPHALEXIN), Dose: 500 mg Capsules PO. Medication Ordered: Keflex PO 500 mg (NOW). Given :11/15/2016 Ilda Penn R.N. Medication Administered: BACTRIM DS [PO] (SULFAMETHOXAZOLE-TMP DS), Dose: 1 tab Tablets PO. Medication Ordered: Bactrim DS PO (Tablet 800-160 mg) 1 tab (NOW).
--- NOTE | 2016-11-21 08:48 | ED MED RECONCILIATION SUMMARY ---
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 BMI: 19.3 ALLERGIES: No Known Drug Allergy The patient's Home Medications are listed below: NONE. The source(s) of the original Home Medication information: Not obtained. The following Medications were given to the patient in the Emergency Department: Percocet [PO] PO 1 tab, administered: 11/15/2016 10:24:00 AM Ativan [IM] IM 1 mg, administered: 11/15/2016 10:29:00 AM Keflex [PO] PO 500 mg, administered: 11/15/2016 11:46:00 AM Bactrim DS [PO] PO 1 tab, administered: 11/15/2016 11:46:00 AM The following Medications were prescribed to the patient: Keflex 500 mg: take 1 capsule orally every 8 hours for 10 days. No refill. Substitution is permissible.(disp 30 caps) -- Feng Isaacs Dr. Bactrim DS 800 mg / 160 mg: take 1 tablet orally every 12 hours for 10 days. No refill. Substitution is permissible.(disp 20 tabs) -- Feng Isaacs Dr. Percocet 5 mg/325 mg: take 1 tablet orally every 6 hours as needed for pain. Dispense twenty (20). No refill. Substitution is permissible. -- Feng Isaacs Dr.
== END 2016-11-15 12:20 | disposition home or self-care (01) ==
LOC: ED SRH 07:52
DX: N75.1 Abscess of Bartholin's gland (principal)
CPT/HCPCS: 83205; 90004; 90469

== ENCOUNTER 2016-11-17 23:37 | Emergency (ER) | payer OTHER ==
--- NOTE | 2016-11-18 02:23 | ED CLINICAL REPORT ---
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 Arrived- By private vehicle. Historian- patient. HISTORY OF PRESENT ILLNESS Chief Complaint: check Bartholin's abscess. This started several days ago and is still present. (patient was seen here 2 days ago and had an incision and drainage of a left-sided Bartholin's abscess. Subsequently a Word catheter was placed. She presents requesting that this be reevaluated. He continues to be sore but the pain is improved she denies any drainage from the wound.). Recent medical care: The patient was seen recently at this facility. Seen for similar symptoms. Diagnosis: (Bartholin's abscess). REVIEW OF SYSTEMS No chills, fever, sweats, calf pain or chest pain. No cough, difficulty breathing, pedal edema, palpitations or abdominal pain. No constipation, diarrhea, nausea or vomiting. She has had moderate pain during urination. All systems otherwise negative, except as recorded above. SOCIAL HISTORY Never smoker. No alcohol use or drug use. FAMILY HISTORY No significant family medical history. ADDITIONAL NOTES The nursing notes have been reviewed. PHYSICAL EXAM Vital Signs: 11/17/2016 23:51 BP: 107/63. HR: 110. RR: 20. O2 saturation: 100%. Temp: 97.3 F. Pain level now: 6/10. Have been reviewed. Appearance: Alert. Eyes: Pupils equal, round and reactive to light. ENT: Pharynx normal. Neck: Neck supple. CVS: Normal heart rate and rhythm. Heart sounds normal. Respiratory: No respiratory distress. Breath sounds normal. Abdomen: No visible injury. Soft and nontender. Bowel sounds normal. No organomegaly. No mass. Back: Normal inspection. No CVA tenderness. : No vaginal discharge. No vaginal bleeding. No herpes-like lesions. (a female wafer polisher was present. Examination of the patient's vulva revealed a Word catheter in place on the left side at her prior Bartholin's abscess I&D site. Mild tenderness was noted there was no drainage.). Skin: Skin warm and dry. Normal skin color. Normal skin turgor. Extremities: Extremities exhibit normal ROM. No lower extremity edema. LABS, X-RAYS, AND EKG Laboratory Tests: UA-Culture if indicated: (MOE: 11/18/2016 01:25) ( [facility] 11/18/2016 01:46) Final results Test Result Flag Units (Reference) URINE COLOR YELLOW URINE APPEARANCE CLEAR URINE GLUCOSE NEGATIVE (NEGATIVE) URINE BILIRUBIN NEGATIVE (NEGATIVE) URINE KETONE NEGATIVE (NEGATIVE) URINE SPECIFIC GRAVITY 1.020 (1.010-1.030) URINE PH 6.0 (5.0-8.0) URINE PROTEIN TRACE (NEGATIVE) URINE UROBILINOGEN 0.2 EU/dL (0.2-1.0) URINE NITRITE NEGATIVE (NEGATIVE) URINE BLOOD 3+ (NEGATIVE) URINE LEUK ESTERASE POSITIVE (NEGATIVE) URINE RBC 50-75 rbc/hpf (0-1) URINE WBC 15-25 wbc/hpf (0-1) URINE EPITHELIAL CELLS 1-3 EPI/hpf (0-5) URINE BACTERIA MANY (4+) (NONE SEEN) URINE COMMENT CULTURE INDICATED URINE CULTURES ARE SET-UP BASED ON THE FOLLOWING CRITERIA:POSITIVE NITRITEPOSITIVE LEUKOCYTE ESTERASEGREATER THAN 10 WHITE BLOOD CELLSMODERATE (2+) OR GREATER BACTERIA Urine: (MOE: 11/18/2016 01:25) ( [facility] 11/18/2016 01:41) Final results Test Result Flag Units (Reference) URINE NEGATIVE CBC w Diff: (MOE: 11/18/2016 01:25) ( [facility] 11/18/2016 01:35) Final results Test Result Flag Units (Reference) WHITE BLOOD COUNT 10.7 K/uL (4.5-11.5) RED BLOOD COUNT 4.18 M/uL (4.00-5.20) HEMOGLOBIN 12.3 gm/dL (12.0-16.0) HEMATOCRIT 37.5 % (36.0-46.0) MEAN CELL VOLUME 90 fL (80-100) MEAN CORPUSCULAR HGB 30 pg (26-34) MEAN CORPUSCULAR HGB CONC 33 g/dL (31-37) RED CELL DISTRIBUTION WIDTH 14.6 % (11.6-14.8) PLATELET COUNT 338 K/uL (150-400) NEUTROPHIL % 51.0 % (50-75) LYMPH % 31.6 % (25-40) MONO % 10.9 % (3-14) EOSINOPHIL % 5.9 H % (0-4) BASOPHIL % 0.6 % (0-2) CMP: (MOE: 11/18/2016 01:25) ( MsgRcvd 11/18/2016 01:46) Final results Test Result Flag Units (Reference) GLUCOSE 96 mg/dL (70-110) BUN 12 mg/dL (7-18) CREATININE 0.7 mg/dL (0.6-1.3) Estimated GFR >60 mL/min Estimated GFR- >60 mL/min Note: Persistent reduction over 3 months in eGFR<60 mL/min/1.73 m2 defines CKD. Patients with eGFR values>=60 mL/min/1.73 m2 may also have CKD if evidence ofpersistent proteinuria. Additional information may be foundat www.kidney.org. SODIUM 142 mmol/L (136-145) POTASSIUM 4.4 mmol/L (3.5-5.1) CHLORIDE 103 mmol/L (98-107) CARBON DIOXIDE 32 mmol/L (21-32) CALCIUM 9.0 mg/dL (8.5-10.1) TOTAL PROTEIN 7.9 g/dL (6.4-8.2) ALBUMIN 3.6 g/dL (3.3-5.0) BILIRUBIN, TOTAL 0.1 mg/dL (0.0-1.0) ALKALINE PHOSPHATASE 95 U/L (46-116) AST (SGOT) 18 U/L (15-37) ALT (SGPT) 18 U/L (12-78) LIPASE 106 U/L (73-393) AMYLASE 67 U/L (25-115) . PROGRESS AND PROCEDURES Course of Care: Patient is stable. Patient/family counseled. Old medical records reviewed. Disposition: Discharged. Condition: stable. CLINICAL IMPRESSION Bartholin's abscess. Acute urinary tract infection with cystitis. INSTRUCTIONS (Discontinue the use of the antibiotics you were prescribed at her previous visit as discussed.). Warnings: Further evaluation is necessary. GENERAL WARNINGS: Return or contact your physician immediately if your condition worsens or changes unexpectedly, if not improving as expected, or if other problems arise. Prescription Medications: Cipro 500 mg: take 1 tab orally every 12 hours for 10 days. Dispense twenty (20). No refills. Substitution is permissible. Clindamycin 300 mg: take 1 capsule orally every 6 hours for 10 days. No refill. Follow-up: Follow up with your doctor tomorrow. Call for an appointment. Understanding of the discharge instructions verbalized by patient. (Electronically signed by Kimani Garcia MD 11/18/2016 23:57)
--- NOTE | 2016-11-18 02:23 | ED CLINICAL REPORT ---
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 Arrived- By private vehicle. Historian- patient. HISTORY OF PRESENT ILLNESS Chief Complaint: check Bartholin's abscess. This started several days ago and is still present. (patient was seen here 2 days ago and had an incision and drainage of a left-sided Bartholin's abscess. Subsequently a Word catheter was placed. She presents requesting that this be reevaluated. He continues to be sore but the pain is improved she denies any drainage from the wound.). Recent medical care: The patient was seen recently at this facility. Seen for similar symptoms. Diagnosis: (Bartholin's abscess). REVIEW OF SYSTEMS No chills, fever, sweats, calf pain or chest pain. No cough, difficulty breathing, pedal edema, palpitations or abdominal pain. No constipation, diarrhea, nausea or vomiting. She has had moderate pain during urination. All systems otherwise negative, except as recorded above. SOCIAL HISTORY Never smoker. No alcohol use or drug use. FAMILY HISTORY No significant family medical history. ADDITIONAL NOTES The nursing notes have been reviewed. PHYSICAL EXAM Vital Signs: 11/17/2016 23:51 BP: 107/63. HR: 110. RR: 20. O2 saturation: 100%. Temp: 97.3 F. Pain level now: 6/10. Have been reviewed. Appearance: Alert. Eyes: Pupils equal, round and reactive to light. ENT: Pharynx normal. Neck: Neck supple. CVS: Normal heart rate and rhythm. Heart sounds normal. Respiratory: No respiratory distress. Breath sounds normal. Abdomen: No visible injury. Soft and nontender. Bowel sounds normal. No organomegaly. No mass. Back: Normal inspection. No CVA tenderness. : No vaginal discharge. No vaginal bleeding. No herpes-like lesions. (a female nuclear reactor technician was present. Examination of the patient's vulva revealed a Word catheter in place on the left side at her prior Bartholin's abscess I&D site. Mild tenderness was noted there was no drainage.). Skin: Skin warm and dry. Normal skin color. Normal skin turgor. Extremities: Extremities exhibit normal ROM. No lower extremity edema. LABS, X-RAYS, AND EKG Laboratory Tests: UA-Culture if indicated: (MOE: 11/18/2016 01:25) ( [facility] 11/18/2016 01:46) Final results Test Result Flag Units (Reference) URINE COLOR YELLOW URINE APPEARANCE CLEAR URINE GLUCOSE NEGATIVE (NEGATIVE) URINE BILIRUBIN NEGATIVE (NEGATIVE) URINE KETONE NEGATIVE (NEGATIVE) URINE SPECIFIC GRAVITY 1.020 (1.010-1.030) URINE PH 6.0 (5.0-8.0) URINE PROTEIN TRACE (NEGATIVE) URINE UROBILINOGEN 0.2 EU/dL (0.2-1.0) URINE NITRITE NEGATIVE (NEGATIVE) URINE BLOOD 3+ (NEGATIVE) URINE LEUK ESTERASE POSITIVE (NEGATIVE) URINE RBC 50-75 rbc/hpf (0-1) URINE WBC 15-25 wbc/hpf (0-1) URINE EPITHELIAL CELLS 1-3 EPI/hpf (0-5) URINE BACTERIA MANY (4+) (NONE SEEN) URINE COMMENT CULTURE INDICATED URINE CULTURES ARE SET-UP BASED ON THE FOLLOWING CRITERIA:POSITIVE NITRITEPOSITIVE LEUKOCYTE ESTERASEGREATER THAN 10 WHITE BLOOD CELLSMODERATE (2+) OR GREATER BACTERIA Urine: (MOE: 11/18/2016 01:25) ( [facility] 11/18/2016 01:41) Final results Test Result Flag Units (Reference) URINE NEGATIVE CBC w Diff: (MOE: 11/18/2016 01:25) ( [facility] 11/18/2016 01:35) Final results Test Result Flag Units (Reference) WHITE BLOOD COUNT 10.7 K/uL (4.5-11.5) RED BLOOD COUNT 4.18 M/uL (4.00-5.20) HEMOGLOBIN 12.3 gm/dL (12.0-16.0) HEMATOCRIT 37.5 % (36.0-46.0) MEAN CELL VOLUME 90 fL (80-100) MEAN CORPUSCULAR HGB 30 pg (26-34) MEAN CORPUSCULAR HGB CONC 33 g/dL (31-37) RED CELL DISTRIBUTION WIDTH 14.6 % (11.6-14.8) PLATELET COUNT 338 K/uL (150-400) NEUTROPHIL % 51.0 % (50-75) LYMPH % 31.6 % (25-40) MONO % 10.9 % (3-14) EOSINOPHIL % 5.9 H % (0-4) BASOPHIL % 0.6 % (0-2) CMP: (MOE: 11/18/2016 01:25) ( MsgRcvd 11/18/2016 01:46) Final results Test Result Flag Units (Reference) GLUCOSE 96 mg/dL (70-110) BUN 12 mg/dL (7-18) CREATININE 0.7 mg/dL (0.6-1.3) Estimated GFR >60 mL/min Estimated GFR- >60 mL/min Note: Persistent reduction over 3 months in eGFR<60 mL/min/1.73 m2 defines CKD. Patients with eGFR values>=60 mL/min/1.73 m2 may also have CKD if evidence ofpersistent proteinuria. Additional information may be foundat www.kidney.org. SODIUM 142 mmol/L (136-145) POTASSIUM 4.4 mmol/L (3.5-5.1) CHLORIDE 103 mmol/L (98-107) CARBON DIOXIDE 32 mmol/L (21-32) CALCIUM 9.0 mg/dL (8.5-10.1) TOTAL PROTEIN 7.9 g/dL (6.4-8.2) ALBUMIN 3.6 g/dL (3.3-5.0) BILIRUBIN, TOTAL 0.1 mg/dL (0.0-1.0) ALKALINE PHOSPHATASE 95 U/L (46-116) AST (SGOT) 18 U/L (15-37) ALT (SGPT) 18 U/L (12-78) LIPASE 106 U/L (73-393) AMYLASE 67 U/L (25-115) . PROGRESS AND PROCEDURES Course of Care: Patient is stable. Patient/family counseled. Old medical records reviewed. Disposition: Discharged. Condition: stable. CLINICAL IMPRESSION Bartholin's abscess. Acute urinary tract infection with cystitis. INSTRUCTIONS (Discontinue the use of the antibiotics you were prescribed at her previous visit as discussed.). Warnings: Further evaluation is necessary. GENERAL WARNINGS: Return or contact your physician immediately if your condition worsens or changes unexpectedly, if not improving as expected, or if other problems arise. Prescription Medications: Cipro 500 mg: take 1 tab orally every 12 hours for 10 days. Dispense twenty (20). No refills. Substitution is permissible. Clindamycin 300 mg: take 1 capsule orally every 6 hours for 10 days. No refill. Follow-up: Follow up with your doctor tomorrow. Call for an appointment. Understanding of the discharge instructions verbalized by patient. (Electronically signed by Kimani Garcia MD 11/18/2016 23:57)
--- NOTE | 2016-11-18 02:23 | ED NURSING NOTES ---
Clinical Report - Nurses [facility] [address] [place] [address] 11/17/2016 23:37 Patient: PROSPER FORREST TRIAGE Triage time 23:51. Acuity: LEVEL 3. Chief Complaint: PELVIC PAIN. --23:53 Josue Hays. 23:51 11/17/16. BP: 107/63. HR: 110. RR: 20. O2 saturation: 100%. Temp: 97.3 F. Pain level now: 02/06. --23:53 Josue Hays. Weight: 52.6 kg. Height/Length: 65 inches. BMI: 19.3. --23:51 Josue Hays. Medications None. --23:52 Josue Hays. Allergies No Known Drug Allergy. --23:52 Josue Hays. History Arrived by private vehicle. Historian: patient. Accompanied by friend. This is a recurrent problem. (3 days). 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 PAST MEDICAL HX: Immunizations: up-to-date. SOCIAL HX: Never smoker. No alcohol use or drug use. No infectious disease exposure. FALL RISK ASSESSMENT: Fall risk assessment completed. No fall risk identified. NUTRITIONAL RISK ASSESSMENT: The nutritional risk assessment revealed no deficiencies. FUNCTIONAL ASSESSMENT: Functional assessment: no impairments noted. LEARNING NEEDS ASSESSMENT: The learning needs assessment revealed no barriers. SKIN INTEGRITY ASSESSMENT: Skin integrity risk assessment completed. No skin integrity risk identified. --23:53 Josue Hays. Interventions ID band on patient. To treatment room. --23:53 Josue Hays. PHYSICAL ASSESSMENT Ambulatory to room. GENERAL / NEURO / PSYCH: Alert. Oriented X 4. Appears in pain. HEENT: Mucous membranes are pink. RESPIRATORY: Respirations not labored. Breath sounds within normal limits. CVS: Normal heart rate and rhythm. Capillary refill less than 2 seconds. GI / : Abdomen soft and nontender. Bowel sounds within normal limits. No vaginal bleeding. SKIN: Skin is warm and dry. --23:54 Ector Hays ( pt states she was here three days ago and is back because the cyst has gotten bigger). --23:54 Ector Hays NURSING PROGRESS NOTES 01:28 11/18/2016 Site #1 started via IV in the right antecubital space with an 20g angiocath, with aseptic technique and good blood return; one attempt. Blood drawn: rainbow set. Labeled in the presence of the patient and sent to the lab. Saline lock flushed. --01:28 Ector Hays PELVIC EXAM: Pelvic exam performed by ED physician. Assisted by a nurse. Preparation: patient placed in lithotomy position. --02:21 Ector Hays DISPOSITION / DISCHARGE 02:36 11/18/2016 Site #1 removed upon discharge. Catheter intact. Bandage applied. --02:36 Ector Hays Departure time: 0232. Condition at departure: improved. No learning barriers present. Discharge instructions provided and reviewed with the patient. Reviewed warnings. Reviewed medication(s) side effects, precautions, dosing and course information. Prescription(s) given to the patient. Treatments reviewed. Reviewed referrals. Follow up contact number. Patient verbalized understanding. Written instructions provided in Lebanese. No diet instructions, activity restrictions or stop smoking instructions. No work note given. The patient was discharged by the physician. She was discharged home and accompanied by underwriting analyst. She left the Emergency Department ambulatory and via private vehicle. Uniform Room Attendant driving. FALL RISK ASSESSMENT: Fall risk assessment completed. No fall risk identified. --02:37 Ector Hays 02:36 11/18/16. BP: 114/65. HR: 74. RR: 18. O2 saturation: 99%. Temp: deferred. Pain level now: 01/06. --02:37 Ector Hays Locked/Released at 11/18/2016 2:38 by Ector Hays
--- NOTE | 2016-11-18 02:23 | ED NURSING NOTES ---
Clinical Report - Nurses [facility] [address] [place] [address] 11/17/2016 23:37 Patient: PROSPER FORREST TRIAGE Triage time 23:51. Acuity: LEVEL 3. Chief Complaint: PELVIC PAIN. --23:53 Josue Hays. 23:51 11/17/16. BP: 107/63. HR: 110. RR: 20. O2 saturation: 100%. Temp: 97.3 F. Pain level now: 02/06. --23:53 Josue Hays. Weight: 52.6 kg. Height/Length: 65 inches. BMI: 19.3. --23:51 Josue Hays. Medications None. --23:52 Josue Hays. Allergies No Known Drug Allergy. --23:52 Josue Hays. History Arrived by private vehicle. Historian: patient. Accompanied by friend. This is a recurrent problem. (3 days). 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 PAST MEDICAL HX: Immunizations: up-to-date. SOCIAL HX: Never smoker. No alcohol use or drug use. No infectious disease exposure. FALL RISK ASSESSMENT: Fall risk assessment completed. No fall risk identified. NUTRITIONAL RISK ASSESSMENT: The nutritional risk assessment revealed no deficiencies. FUNCTIONAL ASSESSMENT: Functional assessment: no impairments noted. LEARNING NEEDS ASSESSMENT: The learning needs assessment revealed no barriers. SKIN INTEGRITY ASSESSMENT: Skin integrity risk assessment completed. No skin integrity risk identified. --23:53 Josue Hays. Interventions ID band on patient. To treatment room. --23:53 Josue Hays. PHYSICAL ASSESSMENT Ambulatory to room. GENERAL / NEURO / PSYCH: Alert. Oriented X 4. Appears in pain. HEENT: Mucous membranes are pink. RESPIRATORY: Respirations not labored. Breath sounds within normal limits. CVS: Normal heart rate and rhythm. Capillary refill less than 2 seconds. GI / : Abdomen soft and nontender. Bowel sounds within normal limits. No vaginal bleeding. SKIN: Skin is warm and dry. --23:54 Ector Hays ( pt states she was here three days ago and is back because the cyst has gotten bigger). --23:54 Ector Hays NURSING PROGRESS NOTES 01:28 11/18/2016 Site #1 started via IV in the right antecubital space with an 20g angiocath, with aseptic technique and good blood return; one attempt. Blood drawn: rainbow set. Labeled in the presence of the patient and sent to the lab. Saline lock flushed. --01:28 Ector Hays PELVIC EXAM: Pelvic exam performed by ED physician. Assisted by a nurse. Preparation: patient placed in lithotomy position. --02:21 Ector Hays DISPOSITION / DISCHARGE 02:36 11/18/2016 Site #1 removed upon discharge. Catheter intact. Bandage applied. --02:36 Ector Hays Departure time: 0232. Condition at departure: improved. No learning barriers present. Discharge instructions provided and reviewed with the patient. Reviewed warnings. Reviewed medication(s) side effects, precautions, dosing and course information. Prescription(s) given to the patient. Treatments reviewed. Reviewed referrals. Follow up contact number. Patient verbalized understanding. Written instructions provided in Estonian. No diet instructions, activity restrictions or stop smoking instructions. No work note given. The patient was discharged by the physician. She was discharged home and accompanied by patternmaker pressure cast. She left the Emergency Department ambulatory and via private vehicle. Associate Loan Officer driving. FALL RISK ASSESSMENT: Fall risk assessment completed. No fall risk identified. --02:37 Ector Hays 02:36 11/18/16. BP: 114/65. HR: 74. RR: 18. O2 saturation: 99%. Temp: deferred. Pain level now: 01/06. --02:37 Ector Hays Locked/Released at 11/18/2016 2:38 by Ector Hays
--- NOTE | 2016-11-18 02:24 | ED ORDER SUMMARY ---
..... Patient: PROSPER FORREST OrderSheet [facility] VisitID: [id number] [address] [place] [address] 21y, F Registration Date/Time: 11/17/2016 ORDER SHEET Weight: 52.6 kg Allergies: No Known Drug Allergy GENERAL ORDERS: GC/Chlamydia (Cervix) (cervix) Urgent (01:11/18/2016 Varun DE) (Ack 1:09 CHagluz ER [employer]) (2:16 Varun DE) (Cancelled: Other2:16 Varun DE) Wet Prep (Cervix) (cervix) Urgent (:11/18/2016 Varun DE) (Ack 1:09 Shaji ER [employer]) (2:16 Varun DE) (Cancelled: Other2:16 Varun DE) CBC w Diff Urgent (:11/18/2016 Varun DE) (Ack 1:09 Shaji ER [employer]) (1:28 TBowen R.N.) CMP Urgent (:11/18/2016 Varun DE) (Ack 1:09 Shaji ER [employer]) (1:28 TBowen R.N.) UA-Culture if indicated Urgent (:11/18/2016 Varun DE) (Ack 1:09 Shaji ER [employer]) (1:28 TBowen R.N.) Amylase Urgent (01:11/18/2016 Varun DE) (Ack 1:09 Shaji ER [employer]) (1:28 TBowen R.N.) Lipase Urgent (01:11/18/2016 Varun DE) (Ack 1:09 Shaji ER [employer]) (1:28 TBowen R.N.) Urine Urgent (:11/18/2016 Varun DE) (Ack 1:09 Shaji CABRALES [employer]) (1:28 TBowen R.N.) Pelvic Exam Setup (:11/18/2016 Varun DE) (1:15 TBowen R.N.) MEDICATION ORDERS: IV FLUIDS: IV Saline Lock (:11/18/2016 Varun DE) (1:29 TBowen R.N.) ORDER SHEET NOTES: [Electronically signed by China Turner R.N. (02:38 11/18/2016)] [Electronically signed by Kimani Garcia MD (23:57 11/18/2016)] [Electronically locked/signed by China Turner R.N. (02:38 11/18/2016)]
--- NOTE | 2016-11-18 02:24 | ED ORDER SUMMARY ---
..... Patient: PROSPER FORREST OrderSheet [facility] VisitID: [id number] [address] [place] [address] 21y, F Registration Date/Time: 11/17/2016 ORDER SHEET Weight: 52.6 kg Allergies: No Known Drug Allergy GENERAL ORDERS: GC/Chlamydia (Cervix) (cervix) Urgent (01:11/18/2016 Varun DE) (Ack 1:09 CHagluz ER [employer]) (2:16 Varun DE) (Cancelled: Other2:16 Varun DE) Wet Prep (Cervix) (cervix) Urgent (:11/18/2016 Varun DE) (Ack 1:09 Shaji ER [employer]) (2:16 Varun DE) (Cancelled: Other2:16 Varun DE) CBC w Diff Urgent (:11/18/2016 Varun DE) (Ack 1:09 Shaji ER [employer]) (1:28 TBowen R.N.) CMP Urgent (:11/18/2016 Varun DE) (Ack 1:09 Shaji ER [employer]) (1:28 TBowen R.N.) UA-Culture if indicated Urgent (:11/18/2016 Varun DE) (Ack 1:09 Shaji ER [employer]) (1:28 TBowen R.N.) Amylase Urgent (01:11/18/2016 Varun DE) (Ack 1:09 Shaji ER [employer]) (1:28 TBowen R.N.) Lipase Urgent (01:11/18/2016 Varun DE) (Ack 1:09 Shaji ER [employer]) (1:28 TBowen R.N.) Urine Urgent (:11/18/2016 Varun DE) (Ack 1:09 Shaji CABRALES [employer]) (1:28 TBowen R.N.) Pelvic Exam Setup (:11/18/2016 Varun DE) (1:15 TBowen R.N.) MEDICATION ORDERS: IV FLUIDS: IV Saline Lock (:11/18/2016 Varun DE) (1:29 TBowen R.N.) ORDER SHEET NOTES: [Electronically signed by China Turner R.N. (02:38 11/18/2016)] [Electronically signed by Kimani Garcia MD (23:57 11/18/2016)] [Electronically locked/signed by China Turner R.N. (02:38 11/18/2016)]
--- NOTE | 2016-11-18 23:58 | ED MAR SUMMARY ---
..... Medication Administration Record [facility] [address] [place], [place] [id number] Patient: EVY FORRESTNEGRO Erika Visit ID: [id number] 21y, F Weight: 52.6 kg Height/Length: 65 in BMI: 19.3 ALLERGIES: No Known Drug Allergy
--- NOTE | 2016-11-18 23:58 | ED MED RECONCILIATION SUMMARY ---
Patient: PROSPER FORREST Medication Reconciliation Report [facility] VisitID: [id number] [address] [place] [address] 21y, F Registration Date/Time: 11/17/2016 Weight: 52.6 kg Height/Length: 65 in. BMI: 19.3 ALLERGIES: No Known Drug Allergy The patient's Home Medications are listed below: NONE. The source(s) of the original Home Medication information: Not obtained. The following Medications were given to the patient in the Emergency Department: None. The following Medications were prescribed to the patient: Cipro 500 mg: take 1 tab orally every 12 hours for 10 days. Dispense twenty (20). No refills. Substitution is permissible. -- Kimani Garcia MD Clindamycin 300 mg: take 1 capsule orally every 6 hours for 10 days. No refill. -- Kimani Garcia MD
--- NOTE | 2016-11-18 23:58 | ED DISCHARGE INSTRUCTIONS ---
Patient: PROSPER FORREST General Instructions [facility] VisitID: [id number] [place] [address] 21y, F Registration Date/Time: 11/17/2016 Bartholin's abscess. Acute urinary tract infection with cystitis. INSTRUCTIONS (Discontinue the use of the antibiotics you were prescribed at her previous visit as discussed.). Warnings: Further evaluation is necessary. GENERAL WARNINGS: Return or contact your physician immediately if your condition worsens or changes unexpectedly, if not improving as expected, or if other problems arise. Prescription Medications: Cipro 500 mg: take 1 tab orally every 12 hours for 10 days. Dispense twenty (20). No refills. Substitution is permissible. Clindamycin 300 mg: take 1 capsule orally every 6 hours for 10 days. No refill. Follow-up: Follow up with your doctor tomorrow. Call for an appointment. Understanding of the discharge instructions verbalized by patient. ADDITIONAL INFORMATION Bartholin's Cyst [I&D] The Bartholin's glands are very small glands found inside the labia (vaginal lips). The glands produce fluid to help keep the vagina moist. When the opening of a Bartholins gland becomes blocked, the gland will swell and form a cyst. A cyst feels like a firm lump within the labia, from to 2 in size. It is usually not painful, unless it becomes infected. There are two common methods for draining the fluid and preventing return of the cyst: -- A small rubber tube (Word catheter) may have been inserted into the cyst. This will probably fall out on its own, or can be removed by your doctor in 2-3 weeks. -- A stitch may be used to hold the incision open and prevent it from healing closed too soon. Most infections of Bartholins cysts are due to bacteria that are normally present in the vagina. But, sometimes a sexually transmitted disease (STD) such as Gonorrhea can cause the infection. A culture test of the fluid can determine this. Home Care: 1) Sit in a tub filled with about 6 inches of very hot water. Allow the water to run in order to keep it hot for a total of 10-15 minutes. Repeat this three times a day until pain is relieved. 2) You may use acetaminophen (Tylenol) or ibuprofen (Motrin, Advil) to control pain, unless another medicine was prescribed. [ NOTE : If you have chronic liver or kidney disease or ever had a stomach ulcer or GI bleeding, talk with your doctor before using these medicines.] 3) Avoid sexual intercourse until all of the swelling and pain is gone, any tubes or stitches have been removed, and you have finished any antibiotics that were given. 4) If the cause of your infection is found to be due to an STD, it will be necessary for your sexual partner to be treated. He should contact his own doctor or clinic, or go to the local Public Health Department. Follow Up with your doctor or as advised by our staff. If a culture test was taken, you may call in two days for the result. If a rubber catheter was inserted and it falls out before your appointment to have it removed, call us or your doctor for advice. Get Prompt Medical Attention if any of the following occur: -- Increasing redness, pain or swelling of the labia -- Fever over 100.5' F (38.0' C) after two days of treatment -- Increasing pain in the lower abdomen -- New rash or joint pain Bladder Infection,Female (Adult) A bladder infection ("cystitis" or "UTI") usually causes a constant urge to urinate and a burning when passing urine. Urine may be cloudy, smelly or dark. There may be pain in the lower abdomen. A bladder infection occurs when bacteria from the vaginal area enter the bladder opening (urethra). This can occur from sexual intercourse, wearing tight clothing, dehydration and other factors. Home Care: Drink lots of fluids (at least 6-8 glasses a day, unless you must restrict fluids for other medical reasons). This will force the medicine into your urinary system and flush the bacteria out of your body. Avoid sexual intercourse until your symptoms are gone. Avoid caffeine, alcohol and spicy foods. These can irritate the bladder. A bladder infection is treated with antibiotics. You may also be given Pyridium (generic = phenazopyridine) to reduce the burning sensation. This medicine will cause your urine to become a bright orange color. The orange urine may stain clothing. You may wear a pad or panty-liner to protect clothing. Preventing Future Infections: Always wipe from front to back after a bowel movement. Keep the genital area clean and dry. Drink plenty of fluids each day to avoid dehydration. Both sexual partners should wash before intercourse. Urinate right after intercourse to flush out the bladder. Wear cotton underwear and cotton-lined panty hose; avoid tight-fitting pants. If you are on control pills and are having frequent bladder infections, discuss with your doctor. Follow Up: Return to this facility or see your doctor if ALL symptoms are not gone after three days of treatment. Get Prompt Medical Attention if any of the following occur: Fever of 100.4F (38C) or higher, or as directed by your healthcare provider No improvement by the third day of treatment Increasing back or abdominal pain Repeated vomiting; unable to keep medicine down Weakness, dizziness or fainting Vaginal discharge Pain, redness or swelling in the labia (outer vaginal area) Ciprofloxacin Hydrochloride Oral tablet What is this medicine? CIPROFLOXACIN (sip tiffanie FLOX a sin) is a quinolone antibiotic. It is used to treat certain kinds of bacterial infections. It will not work for colds, flu, or other viral infections. How should I use this medicine? Take this medicine by mouth with a glass of water. Follow the directions on the prescription label. Take your medicine at regular intervals. Do not take your medicine more often than directed. Take all of your medicine as directed even if you think your are better. Do not skip doses or stop your medicine early. You can take this medicine with food or on an empty stomach. It can be taken with a meal that contains dairy or calcium, but do not take it alone with a dairy product, like milk or yogurt or calcium-fortified juice. A special MedGuide will be given to you by the pharmacist with each prescription and refill. Be sure to read this information carefully each time. Talk to your fresh work inspector regarding the use of this medicine in children. Special care may be needed. What side effects may I notice from receiving this medicine? Side effects that you should report to your doctor or health career services manager as soon as possible: - allergic reactions like skin rash, itching or hives, swelling of the face, lips, or tongue - breathing problems - confusion, nightmares or hallucinations - feeling faint or lightheaded, falls - irregular heartbeat - joint, muscle or tendon pain or swelling - pain or trouble passing urine -persistent headache with or without blurred vision - redness, blistering, peeling or loosening of the skin, including inside the mouth - seizure - unusual pain, numbness, tingling, or weakness Side effects that usually do not require medical attention (report to your doctor or health career services manager if they continue or are bothersome): - diarrhea - nausea or stomach upset - white patches or sores in the mouth What may interact with this medicine? Do not take this medicine with any of the following medications: cisapride droperidol terfenadine tizanidine This medicine may also interact with the following medications: antacids caffeine cyclosporin didanosine (ddI) buffered tablets or powder medicines for diabetes medicines for inflammation like ibuprofen, naproxen methotrexate multivitamins omeprazole phenytoin probenecid sucralfate theophylline warfarin What if I miss a dose? If you miss a dose, take it as soon as you can. If it is almost time for your next dose, take only that dose. Do not take double or extra doses. Where should I keep my medicine? Keep out of the reach of children. Store at room temperature below 30 degrees C (86 degrees F). Keep container tightly closed. Throw away any unused medicine after the expiration date. What should I tell my health care provider before I take this medicine? They need to know if you have any of these conditions: -bone problems -cerebral disease -joint problems -irregular heartbeat -kidney disease -liver disease -myasthenia gravis -seizure disorder -tendon problems -an unusual or allergic reaction to ciprofloxacin, other antibiotics or medicines, foods, dyes, or preservatives - or trying to get -breast-feeding What should I watch for while using this medicine? Tell your doctor or health career services manager if your symptoms do not improve. Do not treat diarrhea with over the counter products. Contact your doctor if you have diarrhea that lasts more than 2 days or if it is severe and watery. You may get drowsy or dizzy. Do not drive, use machinery, or do anything that needs mental alertness until you know how this medicine affects you. Do not stand or sit up quickly, especially if you are an older patient. This reduces the risk of dizzy or fainting spells. This medicine can make you more sensitive to the sun. Keep out of the sun. If you cannot avoid being in the sun, wear protective clothing and use sunscreen. Do not use sun lamps or tanning beds/booths. Avoid antacids, aluminum, calcium, iron, magnesium, and zinc products for 6 hours before and 2 hours after taking a dose of this medicine. Clindamycin Hydrochloride Oral capsule What is this medicine? CLINDAMYCIN (PORFIRIO Young) is a lincosamide antibiotic. It is used to treat certain kinds of bacterial infections. It will not work for colds, flu, or other viral infections. How should I use this medicine? Take this medicine by mouth with a full glass of water. Follow the directions on the prescription label. You can take this medicine with food or on an empty stomach. If the medicine upsets your stomach, take it with food. Take your medicine at regular intervals. Do not take your medicine more often than directed. Take all of your medicine as directed even if you think your are better. Do not skip doses or stop your medicine early. Talk to your fresh work inspector regarding the use of this medicine in children. Special care may be needed. What side effects may I notice from receiving this medicine? Side effects that you should report to your doctor or health career services manager as soon as possible: allergic reactions like skin rash, itching or hives, swelling of the face, lips, or tongue dark urine pain on swallowing redness, blistering, peeling or loosening of the skin, including inside the mouth unusual bleeding or bruising unusually weak or tired yellowing of eyes or skin Side effects that usually do not require medical attention (report to your doctor or health career services manager if they continue or are bothersome): diarrhea itching in the rectal or genital area joint pain nausea, vomiting stomach pain What may interact with this medicine? chloramphenicol erythromycin kaolin products What if I miss a dose? If you miss a dose, take it as soon as you can. If it is almost time for your next dose, take only that dose. Do not take double or extra doses. Where should I keep my medicine? Keep out of the reach of children. Store at room temperature between 20 and 25 degrees C (68 and 77 degrees F). Throw away any unused medicine after the expiration date. What should I tell my health care provider before I take this medicine? They need to know if you have any of these conditions: kidney disease liver disease stomach problems like colitis an unusual or allergic reaction to clindamycin, lincomycin, or other medicines, foods, dyes like tartrazine or preservatives or trying to get breast-feeding What should I watch for while using this medicine? Tell your doctor or healthcare professional if your symptoms do not start to get better or if they get worse. Do not treat diarrhea with over the counter products. Contact your doctor if you have diarrhea that lasts more than 2 days or if it is severe and watery. You have been given the following additional information: Bartholin's Cyst (I And D) Bladder Infection, Female (Adult) Ciprofloxacin Hydrochloride Oral tablet Clindamycin Hydrochloride Oral capsule (Electronically signed by Kimani Garcia MD 11/18/2016 23:57)
--- NOTE | 2016-11-18 23:58 | ED MAR SUMMARY ---
..... Medication Administration Record [facility] [address] [place], [place] [id number] Patient: EVY FORRESTNEGRO Erika Visit ID: [id number] 21y, F Weight: 52.6 kg Height/Length: 65 in BMI: 19.3 ALLERGIES: No Known Drug Allergy
--- NOTE | 2016-11-18 23:58 | ED MED RECONCILIATION SUMMARY ---
Patient: PROSPER FORREST Medication Reconciliation Report [facility] VisitID: [id number] [address] [place] [address] 21y, F Registration Date/Time: 11/17/2016 Weight: 52.6 kg Height/Length: 65 in. BMI: 19.3 ALLERGIES: No Known Drug Allergy The patient's Home Medications are listed below: NONE. The source(s) of the original Home Medication information: Not obtained. The following Medications were given to the patient in the Emergency Department: None. The following Medications were prescribed to the patient: Cipro 500 mg: take 1 tab orally every 12 hours for 10 days. Dispense twenty (20). No refills. Substitution is permissible. -- Kimani Garcia MD Clindamycin 300 mg: take 1 capsule orally every 6 hours for 10 days. No refill. -- Kimani Garcia MD
== END 2016-11-18 02:32 | disposition home or self-care (01) ==
LOC: ED SRH 23:37
DX: N75.0 Cyst of Bartholin's gland (principal); N30.00 Acute cystitis without hematuria
CPT/HCPCS: 90004; 90100; 90469; 92235; 92530; 93070; 95059